=== PATIENT | female | born 2000 | race Two or more races ===

== ENCOUNTER 2020-05-21 21:10 | Emergency (ER) | payer SELFPAY ==
[~2020-05-21] VITALS: Ht 162.6 cm; Wt 73.8 kg
--- NOTE | 2020-05-21 21:12 | PHYS DOC ---
General Adult EDM: Problems: (1) Anxiety (BOBBY LEVINE APRN) HPI: HPI: Patient is a 19 year old female who presents with above hx and complaints of anxiety. See report A Iris. (ALEXANDER SMITH MD) HPI: 19-year-old female presents with anxiety. Patient states that she has a history of anxiety and usually she is able to take Benadryl at home with relief in symptoms. Patient states that the last 3 days the Benadryl has not been working and she has been unable to sleep. Patient states "I feel like my whole body just hurts because I am so anxious". Patient denies shortness of breath, nausea, vomiting or pain. Patient does not have a PCP and is requesting a list of doctors. Patient states that her symptoms are consistent with when she has anxiety attacks. (BOBBY LEVINE APRN) Review of Systems: Review of Systems: Psychiatric: Complaints of anxiety (ALEXANDER SMITH MD) Review of Systems: Constitutional: Denies fever or chills Eyes: Denies change in visual acuity HENT: Denies nasal congestion or sore throat Respiratory: Denies cough or shortness of breath Cardiovascular: Denies chest pain or edema GI: Denies abdominal pain, nausea, vomiting, bloody stools or diarrhea : Denies dysuria Musculoskeletal: Denies back pain or joint pain Integument: Denies rash Neurologic: Denies headache, focal weakness or sensory changes Endocrine: Denies polyuria or polydipsia Lymphatic: Denies swollen glands Psychiatric: Denies depression, reports history of anxiety (BOBBY LEVINE APRN) Physical Exam: PE: Constitutional: Well developed, well nourished, no acute distress, non-toxic appearance. [] HENT: Normocephalic, atraumatic, bilateral external ears normal, oropharynx moist, no oral exudates, nose normal. [] Eyes: PERRLA, EOMI, conjunctiva normal, no discharge. [] Neck: Normal range of motion, no tenderness, supple, no stridor. Prominent thyroid Cardiovascular: Tachycardia heart rate regular rhythm, no murmur [] Lungs & Thorax: Bilateral breath sounds clear to auscultation [] Abdomen: Bowel sounds normal, soft, no tenderness, no masses, no pulsatile masses. [] Skin: Warm, dry, no erythema, no rash. [] Back: No tenderness, no CVA tenderness. [] Extremities: No tenderness, no cyanosis, no clubbing, ROM intact, no edema. [] Neurologic: Alert and oriented X 3, normal motor function, normal sensory function, no focal deficits noted. [] Psychologic: Affect anxious , judgement normal, mood normal. [] (ALEXANDER SMITH MD) PE: Constitutional: Well developed, well nourished, no acute distress, non-toxic appearance. [] HENT: Normocephalic, atraumatic, bilateral external ears normal, oropharynx moist, no oral exudates, nose normal. [] Eyes: PERRLA, EOMI, conjunctiva normal, no discharge. [] Neck: Normal range of motion, no tenderness, supple, no stridor. [] Cardiovascular:Heart rate regular rhythm, no murmur [] Lungs & Thorax: Bilateral breath sounds clear to auscultation [] Abdomen: Bowel sounds normal, soft, tenderness to left side of abdomen Skin: Warm, dry, no erythema, no rash. [] Back: No tenderness, left-sided CVA tenderness. [] Extremities: No tenderness, no cyanosis, no clubbing, ROM intact, no edema. [] Neurologic: Alert and oriented X 3, normal motor function, normal sensory function, no focal deficits noted. [] Psychologic: Affect anxious, judgement normal, (BOBBY LEVINE APRN) EKG: EKG: [] (ALEXANDER SMITH MD) Radiology/Procedures: Radiology/Procedures: [] (ALEXANDER SMITH MD) Heart Score: Risk Factors: Risk Factors: DM, Current or recent (<one month) smoker, HTN, HLP, family history of CAD, obesity. Risk Scores: Score 0 - 3: 2.5% MACE over next 6 weeks - Discharge Home Score 4 - 6: 20.3% MACE over next 6 weeks - Admit for Clinical Observation Score 7 - 10: 72.7% MACE over next 6 weeks - Early Invasive Strategies (ALEXANDER SMITH MD) Course & Med Decision Making: Course & Med Decision Making Pertinent Labs and Imaging studies reviewed. (See chart for details) Patient relates she is always had some episodes of anxiety but I have been more frequently lately. No association with events meds or exposures. Recently moved here from [place]. Patient by history is always been somewhat " high strung" per mother. Patient has no history of coagulopathy. No history of excessive caffeine use. No history of drug use. No history of immunosuppression. Did recommend the patient follow-up primary care. Consider thyroid testing on follow-up primary care. Recommend keeping a diary of anxiety events. Must follow-up. Return if any concerns. Patient denies any dysrhythmias. Patient denies any dyspnea. Patient denies any recent stressful events. Impression; 1. Anxiety (ALEXANDER SMITH MD) Course & Med Decision Making 19-year-old female presents with anxiety. Patient states that she has a history of anxiety and usually she is able to take Benadryl at home with relief in symptoms. Patient states that the last 3 days the Benadryl has not been working and she has been unable to sleep. Patient states "I feel like my whole body just hurts because I am so anxious". Patient denies shortness of breath, nausea, vomiting. Patient does not have a PCP and is requesting a list of doctors. Patient denies being prescribed anything for anxiety or depression. Explained patient she needed to follow-up with her primary care physician for further treatment options. Patient's states her anxiety is happening more often and she is unable to help herself at home like she used to. Patient is requesting a list of doctors so that she can find a PCP. Will give patient Ativan IM and discharged to home with her mom. (BOBBY LEVINE APRN) Jacquieon Disclaimer: Almaz Disclaimer: This electronic medical record was generated, in whole or in part, using a voice recognition dictation system. (ALEXANDER SMITH MD) Departure Departure: Impression: Primary Impression: Anxiety Disposition: 01 DC HOME SELF CARE/HOMELESS Condition: GOOD Patient Instructions: Anxiety and Panic Attacks, [id number] Additional Instructions: EMERGENCY DEPARTMENT GENERAL DISCHARGE INSTRUCTIONS Thank you for coming to [facility] (ED) today and trusting us with you care. We trust that you had a positivie experience in our Emergency Department. If you wish to speak to the department management, you may call the director at [phone]. YOUR FOLLOW UP INSTRUCTIONS ARE FOLLOWS: 1. Do you have a private Doctor? If you do not have a private doctor, please ask for a resource list of physicians or clinics that may be able to assist you with follow up care. 2. The Emergency Physician has interpreted your x-rays. The X-Ray specialist will also review them. If there is a change in the findings, you will be notified in 48 hours when at all possible. 3. A lab test or culture has been done, your results will be reviewed and you will be notified if you need a change in treatment. ADDITIONAL INSTRUCTIONS AND INFORMATION: 1. Your care today has been supervised by a physician who is specially trained in emergency care. Many problems require more than one evaluation for a complete diagnosis and treatment. We recommend that you schedule your follow up appointment as recommended to ensure complete treatment of you illness or injury. If you are unable to obtain follow up care and continue to have a problem, or if your condition worsens, we recommend that you return to the ED. 2. We are not able to safely determine your condition over the phone nor are we able to give sound medical advice over the phone. For these safety reasons, if you call for medical advice we will ask you to come to the ED for further evaluation. 3. If you have any questions regarding these discharge instructions please call the ED at [phone]. SAFETY INFORMATION: In the interest of safety, wellness, and injury prevention; we encourage you to wear your sealbelt, if you smoke; quite smoking, and we encourage family to use a protective helmet for bicycling and other sporting events that present an increased risk for head injury. IF YOUR SYMPTOMS WORSEN OR NEW SYMPTOMS DEVELOP, OR YOU HAVE CONCERNS ABOUT YOUR CONDITION; OR IF YOUR CONDITION WORSENS WHILE YOU ARE WAITING FOR YOUR FOLLOW UP APPOINTMENT; EITHER CONTACT YOUR PRIMARY CARE DOCTOR, THE PHYSICIAN WHOSE NAME AND NUMBER YOU WERE GIVEN, OR RETURN TO THE ED IMMEDIATELY. ALEXANDER SMITH MD May 21, 2020 21:12 BOBBY LEVINE APRN May 21, 2020 22:23
[2020-05-21 23:25] VITALS: BP 109/63
== END 2020-05-21 23:24 | disposition home or self-care (01) ==
LOC: ER 21:10
DX: F41.9 Anxiety disorder, unspecified (principal)
CPT/HCPCS: 96372; 96374; 99283; J2060